=== PATIENT | female | born 2000 | race Asian ===

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

== ENCOUNTER 2020-10-11 08:34 | Emergency (ER) | payer OTHER ==
[~2020-10-11] VITALS: Ht 152.4 cm; Wt 70.5 kg
[~2020-10-11 08:34] MED LIST: ALBU8HFA IH
[2020-10-11] MEDS ORDERED: PNV1TABL54 PO (08:39)
[2020-10-11] MEDS ORDERED: ALBUTEROL SULFATE HFA 90 MCG/PUFF 8 GM INHALER IH ONE (09:00)
[2020-10-11 09:38] LABS: BASOPHILS % (AUTO) 0.1 % (0.0-2.0); EOSINOPHILS % (AUTO) 0.7 % (1.0-6.0); HEMATOCRIT 38.8 % (36-46); HEMOGLOBIN 12.8 g/dL (12.0-16.0); LYMPHOCYTES # (AUTO) 2.4 K/uL (1.0-4.8); LYMPHOCYTES % (AUTO) 17.6 % (22.0-44.0); MEAN CORPUSCULAR HEMOGLOBIN 29.5 pg (26.0-34.0); MEAN CORPUSCULAR HGB CONC 33.1 G/dL (31.0-37.0); MEAN CORPUSCULAR VOLUME 89 fL (80-100); MONOCYTES # (AUTO) 0.9 K/uL (0.1-1.0); MONOCYTES % (AUTO) 6.7 % (2.0-9.0); NEUTROPHILS # (AUTO) 10.2 K/uL (1.8-7.7); NEUTROPHILS % (AUTO) 74.9 % (40.0-70.0); PLATELET COUNT (AUTO) 416 K/uL (150-450); RED BLOOD CELL COUNT(AUTO) 4.35 MIL/uL (4.00-5.20); RED CELL DISTRIBUTION WIDTH 13.2 % (11.5-14.5)
[2020-10-11 09:51] LABS: ANION GAP 7 mmol/L (8-16); CALCIUM, TOTAL 8.8 mg/dL (8.8-10.5); CARBON DIOXIDE 24 mmol/L (22-29); CHLORIDE 102 mmol/L (98-107); CREATININE 0.67 mg/dL (0.60-1.30); GLOMERULAR FILTR. RATE CALC > 60 mL/min (>60); GLUCOSE,RANDOM 90 mg/dL (70-110); POTASSIUM 3.4 mmol/L (3.5-5.1); SODIUM SERUM 133 mmol/L (136-145); UREA NITROGEN, BLOOD 6 mg/dL (7-18)
[2020-10-11 10:05] LABS: COVID AG,FIA SOURCE NASOPHARYNGEAL
[2020-10-11 10:14] LABS: APPEARANCE,URINE CLOUDY (CLEAR); BILIRUBIN,URINE NEGATIVE (NEGATIVE); GLUCOSE, URINE (UA) NEGATIVE (NEGATIVE); KETONES,URINE NEGATIVE (NEGATIVE); LEUKOCYTE ESTERASE ,URINE TRACE (NEGATIVE); NITRATE,URINE NEGATIVE (NEGATIVE); OCCULT BLOOD,URINE NEGATIVE (NEGATIVE); PROTEIN,URINE NEGATIVE (NEGATIVE)
[2020-10-11 10:23] LABS: ALANINE AMINOTRANSFERASE 22 U/L (12-78); ALBUMIN 3.4 g/dL (3.4-5.0); ALKALINE PHOSPHATASE 62 U/L (46-116); ASPARTATE AMINOTRANSFERASE 14 U/L (15-37); BILIRUBIN,TOTAL 0.4 mg/dL (0.1-1.0); HCG,QUANTITATIVE 72148 mIU/mL (0-6); LIPASE 165 U/L (73-393); TOTAL PROTEIN, SERUM 7.4 g/dL (6.4-8.2)
[2020-10-11 10:31] LABS: BACTERIA,URINE Few /HPF (None Seen); RBC,URINE None Seen /HPF (0-2)
[2020-10-11 10:32] LABS: SQUAMOUS EPITHELIAL CELL,UR Moderate /LPF (None Seen)
[2020-10-11 13:22] VITALS: BP 116/67
== END 2020-10-11 13:39 | disposition home or self-care (01) ==
LOC: EMS 08:39
DX: O26.891 Other specified pregnancy related conditions, first trimester (principal); R10.30 Lower abdominal pain, unspecified; J45.909 Unspecified asthma, uncomplicated; Z79.899 Other long term (current) drug therapy; Z3A.08 8 weeks gestation of pregnancy; Z20.828 Contact with and (suspected) exposure to other viral communicable diseases
CPT/HCPCS: 36415; 76801; 76817; 80053; 81001; 83690; 84702; 85025; 87426; 99285; U0003; J3535

== ENCOUNTER 2025-08-09 19:56 | Emergency (ER) | payer OTHER ==
[~2025-08-09] VITALS: Ht 154.9 cm; Wt 45.0 kg
[~2025-08-09 19:56] MED LIST changes: +ALBU18HF12 IH; -ALBU8HFA IH; +PNV1TABL54 PO
[2025-08-09 20:56] LABS: PLATELET COUNT (AUTO) 360 K/uL (150-450); RED BLOOD CELL COUNT(AUTO) 4.92 MIL/uL (4.00-5.20); RED CELL DISTRIBUTION WIDTH 13.5 % (11.5-14.5); WHITE BLOOD COUNT (AUTO) 7.9 K/uL (4.5-11.0)
[2025-08-09 21:08] LABS: ALCOHOL, BLOOD (SERUM) 53 mg/dL (0-10)
[2025-08-09] MEDS: SODIUM CHLORIDE 0.9% 1,000 ML IV ONE (21:08)
[2025-08-09 21:15] LABS: ASPARTATE AMINOTRANSFERASE 21 U/L (15-37); CREATINE KINASE, TOTAL ONLY 86 U/L (26-192); TOTAL PROTEIN, SERUM 8.1 g/dL (6.4-8.2)
[2025-08-09 21:21] LABS: CALCIUM, TOTAL 9.2 mg/dL (8.8-10.5); CREATININE 0.69 mg/dL (0.60-1.30); GLOMERULAR FILTR. RATE CALC > 60 mL/min (>60); GLUCOSE,RANDOM 80 mg/dL (70-110); SODIUM SERUM 141 mmol/L (136-145); UREA NITROGEN, BLOOD 5 mg/dL (7-18)
[2025-08-09 21:31] LABS: TROPONIN I-HIGH SENSITIVITY 4 ng/L (<51)
[2025-08-09 22:16] LABS: APPEARANCE,URINE CLEAR (CLEAR); GLUCOSE, URINE (UA) NEGATIVE (NEGATIVE); LEUKOCYTE ESTERASE ,URINE NEGATIVE (NEGATIVE); NITRATE,URINE NEGATIVE (NEGATIVE); OCCULT BLOOD,URINE NEGATIVE (NEGATIVE); PH,URINE DRUG SCREEN 6.5 (5.0-8.0); SPECIFIC GRAVITIY, URINE 1.003 (1.003-1.030)
[2025-08-09 22:22] LABS: ALCOHOL, URINE DRUG SCREEN NEGATIVE (NEGATIVE); AMPHET/METH SCREEN,URINE NEGATIVE (NEGATIVE); BARBITURATE SCREEN, URINE NEGATIVE (NEGATIVE); CANNABINOID SCREEN,URINE NEGATIVE (NEGATIVE); COCAINE SCREEN,URINE NEGATIVE (NEGATIVE); METHADONE SCREEN, URINE NEGATIVE (NEGATIVE)
[2025-08-09 22:24] LABS: COVID AG,FIA SOURCE NASAL SWAB
[2025-08-09 23:07] LABS: SARS-COV2 (COVID) ANTIGEN,FIA Negative (Negative)
[2025-08-10 08:41] VITALS: BP 119/82; PULSE 78; RESP 18; TEMP 97.7; O2SAT 99
== END 2025-08-10 08:47 | disposition admitted as inpatient to this hospital (09) ==
LOC: EMS 19:56
DX: T45.0X1A Poisoning by antiallergic and antiemetic drugs, accidental (unintentional), initial encounter (principal); F32.9 Major depressive disorder, single episode, unspecified; J45.909 Unspecified asthma, uncomplicated; R55 Syncope and collapse; R45.851 Suicidal ideations; Z20.822 Contact with and (suspected) exposure to COVID-19; Z79.899 Other long term (current) drug therapy; Y92.89 Other specified places as the place of occurrence of the external cause
CPT/HCPCS: 99285; 71045; 87426; 80048; 80076; 81003; 82550; 83735; 83880; 84484; 84703; 85025; 85610; 85730; 36415; 93005; 80307; G0480; G0481